=== PATIENT | female | born 1955 | race Caucasian/White ===

== ENCOUNTER 2017-01-13 20:52 | Inpatient (IN) | payer OTHER ==
[~2017-01-13] VITALS: Ht 165.1 cm; Wt 115.2 kg
[2017-01-13 21:15] VITALS: BP 124/70
[2017-01-13] MEDS ORDERED: BUDE10.2 INH (22:05)
[2017-01-13] MEDS ORDERED: FLUT9.9S NS (22:05)
[2017-01-13] MEDS ORDERED: TRIA50CA PO (22:05)
[2017-01-14] MEDS: HEPARIN 5,000 UNITS/ML, 1ML SQ SCH ×3 (00:30→17:53)
[2017-01-14] MEDS ORDERED: DOCUSATE 100 MG CAPSULE PO PRN (00:30)
[2017-01-14] MEDS ORDERED: hydrALAzine 20 MG/ML, 1ML IVPush PRN (00:30)
[2017-01-14] MEDS ORDERED: ONDANSETRON ODT 4 MG PO PRN (00:30)
[2017-01-14] MEDS ORDERED: TEMAZEPAM 15 MG CAPSULE PO PRN (00:30)
[2017-01-14] MEDS ORDERED: ACETAMINOPHEN 325 MG TABLET ONE (00:44)
[2017-01-14] MEDS: ACETAMINOPHEN 325 MG TABLET PO PRN (00:49)
[2017-01-14] MEDS ORDERED: TRIAMTERENE MC SCH (01:00)
[2017-01-14 01:13] VITALS: BP 94/61
[2017-01-14 02:34] LABS: IS PT STATUS REG ER OR PRE ER? NO
[2017-01-14 06:52] LABS: IS PT STATUS REG ER OR PRE ER? NO
[2017-01-14 06:59] VITALS: BP 102/64
[2017-01-14] MEDS ORDERED: REGADENOSON 0.4 MG/5 ML SYRINGE ONE (08:54)
[2017-01-14] MEDS ORDERED: TRIAMTERENE 50 MG CAPSULE PO SCH (09:00)
[2017-01-14] MEDS: FLUTICASONE/VILANTEROL 200-25MCG/INH INH SCH (11:45)
[2017-01-14] MEDS: FLUTICASONE NASAL SPRAY 16GM NAS SCH ×2 (11:45→21:00)
[2017-01-14] MEDS: MECLIZINE 12.5 MG TABLET PO PRN (11:51)
[2017-01-14 12:51] VITALS: BP 103/65
[2017-01-14 19:56] VITALS: BP 93/61
[2017-01-15] MEDS: HEPARIN 5,000 UNITS/ML, 1ML SQ SCH ×3 (00:30→16:30)
[2017-01-15 03:05] VITALS: BP 112/78
[2017-01-15 06:14] LABS: BLOOD UREA NITROGEN 23 mg/dL (7-18)
[2017-01-15 07:22] VITALS: BP 133/65
[2017-01-15] MEDS: FLUTICASONE/VILANTEROL 200-25MCG/INH INH SCH (08:20)
[2017-01-15] MEDS: ACETAMINOPHEN 325 MG TABLET PO PRN ×3 (08:21→19:40)
[2017-01-15] MEDS: FLUTICASONE NASAL SPRAY 16GM NAS SCH ×2 (08:21→20:55)
[2017-01-15 14:17] VITALS: BP 121/73
[2017-01-15 20:51] VITALS: BP 108/65
[2017-01-16] MEDS: HEPARIN 5,000 UNITS/ML, 1ML SQ SCH ×2 (00:30→08:23)
[2017-01-16 01:35] VITALS: BP 94/60
[2017-01-16] MEDS ORDERED: ASPIRIN 81 MG TABLET EC PO SCH (06:00)
[2017-01-16 07:32] VITALS: BP 112/74
[2017-01-16] MEDS: MECLIZINE 12.5 MG TABLET PO PRN (08:23)
[2017-01-16] MEDS: FLUTICASONE/VILANTEROL 200-25MCG/INH INH SCH (08:23)
[2017-01-16] MEDS: FLUTICASONE NASAL SPRAY 16GM NAS SCH (08:23)
[2017-01-16] MEDS ORDERED: MECL12.52 PO (13:12)
[2017-01-16] MEDS ORDERED: ASPI-621 PO (13:12)
[2017-01-16 14:39] VITALS: BP 111/66
== END 2017-01-16 15:45 | disposition home or self-care (01) | DRG 189 ==
LOC: 5SO 21:16 → 3NE 01-14 18:04 → DCLOUNGE 01-16 15:20
PROVIDERS: ADMIT Family Medicine; ATTEND Family Medicine
DX: J96.20 Acute and chronic respiratory failure, unspecified whether with hypoxia or hypercapnia (principal); Z68.41 Body mass index [BMI] 40.0-44.9, adult; R07.9 Chest pain, unspecified; E66.01 Morbid (severe) obesity due to excess calories; I25.10 Atherosclerotic heart disease of native coronary artery without angina pectoris; J44.9 Chronic obstructive pulmonary disease, unspecified; I95.9 Hypotension, unspecified; R42 Dizziness and giddiness; Z71.3 Dietary counseling and surveillance; Z88.5 Allergy status to narcotic agent; Z90.49 Acquired absence of other specified parts of digestive tract; Z83.3 Family history of diabetes mellitus; Z82.49 Family history of ischemic heart disease and other diseases of the circulatory system; Z87.891 Personal history of nicotine dependence
CPT/HCPCS: 36415; 70450; 70551; 78452; 80048; 80061; 83735; 84439; 84443; 84484; 85025; 93017; 93306; 93880; J2785; A9502; C9898